=== PATIENT | female | born 1980 ===

== ENCOUNTER 2018-05-16 07:53 | Outpatient (CLI) | payer OTHER | END 2018-05-16 07:55 | disposition home or self-care (01) | LOC: SONOGRAMA 07:53 | DX: E04.1 Nontoxic single thyroid nodule (principal) ==

== ENCOUNTER 2025-04-10 09:56 | Outpatient (CLI) | payer OTHER | END 2025-04-10 09:58 | disposition home or self-care (01) | LOC: RAD 09:56 | PROVIDERS: ATTEND Pathology Anatomic Pathology & Clinical Pathology | DX: D34 Benign neoplasm of thyroid gland (principal); E06.3 Autoimmune thyroiditis; E04.2 Nontoxic multinodular goiter ==